=== PATIENT | female | born 1975 | race Two or more races ===

== ENCOUNTER 2025-06-26 07:41 | Outpatient (CLI) | payer OTHER ==
[~2025-06-26 07:41] MED LIST: PRENCAP69 PO
[2025-06-26 08:22] LABS: Urine Protein, UAD Negative (Negative)
[2025-06-26 08:31] LABS: Iron 130.0 ug/dL (50-170)
[2025-06-26 08:34] LABS: Alanine Aminotransferase 29 U/L (7-40); Albumin 4.6 g/dL (3.2-4.8); Alkaline Phosphatase 113 U/L (46-116); Anion Gap 8 (5-15); BUN/Creatinine Ratio 10.5 (10.0-20.0); Bilirubin, Total 0.9 mg/dL (0.2-1.0); Blood Urea Nitrogen 9 mg/dL (9-23); Calcium 9.6 mg/dL (8.7-10.4); Carbon Dioxide 28 mmol/L (20-31); Chloride 104 mmol/L (98-107); Cholesterol 175 mg/dL (< 200); Glucose 88 mg/dL (74-106); Magnesium 2.1 mg/dL (1.6-2.6); Potassium 4.0 mmol/L (3.5-5.1); Sodium 140 mmol/L (136-145); Total Iron Binding Capacity 386.0 ug/dL (250-425); Total Protein 7.6 g/dL (5.7-8.2); Triglycerides 41 mg/dL (< 150)
[2025-06-26 08:36] LABS: HDL Cholesterol 71 mg/dL (40-59)
[2025-06-26 08:41] LABS: Hematocrit 40.8 % (36.0-46.0); Hemoglobin 14.4 g/dL (12.2-16.2); Mean Corpuscular Hemoglobin 32.1 pg (28.0-32.0); Mean Corpuscular Volume 90.7 fL (80.0-100.0); Nucleated Red Blood Cells % 0.1 %
[2025-06-26 08:49] LABS: Free T4 (Free Thyroxine) 1.46 ng/dL (0.89-1.76)
[2025-06-26 10:26] LABS: Uric Acid 3.1 mg/dL (3.1-7.8)
[2025-06-27 13:07] LABS: Anti-Nuclear Antibody Direct Negative (Negative); Anti-dsDNA Antibody 1 IU/mL (0-9); Antiscleroderma-70 Antibody <0.2 AI (0.0-0.9); Sjogren's Anti-SS-A Antibody <0.2 AI (0.0-0.9); Sjogren's Anti-SS-B Antibody <0.2 AI (0.0-0.9)
== END 2025-06-26 17:00 | disposition home or self-care (01) ==
LOC: LAB 07:41
PROVIDERS: ATTEND Family Medicine
DX: N92.4 Excessive bleeding in the premenopausal period (principal); J30.2 Other seasonal allergic rhinitis; M21.241 Flexion deformity, right finger joints; R53.83 Other fatigue; Z00.00 Encounter for general adult medical examination without abnormal findings; Z90.721 Acquired absence of ovaries, unilateral
CPT/HCPCS: 36415; 80053; 80061; 81001; 82306; 82607; 82746; 83036; 83540; 83550; 83735; 84439; 84443; 84550; 85025; 86160; 86225; 86235; 86376; 86431

== ENCOUNTER 2025-09-18 13:35 | Outpatient (CLI) | payer OTHER | END 2025-09-18 17:00 | disposition home or self-care (01) | LOC: LAB 13:35 | PROVIDERS: ATTEND Radiology Diagnostic Radiology | DX: Z01.812 Encounter for preprocedural laboratory examination (principal); R92.1 Mammographic calcification found on diagnostic imaging of breast ==